=== PATIENT | male | born 1990 | race Two or more races ===

== ENCOUNTER 2022-04-15 02:04 | Emergency (ER) | payer MEDICAID, OTHER ==
[~2022-04-15] VITALS: Ht 182.9 cm; Wt 73.0 kg
[2022-04-15] MEDS ORDERED: ONDANSETRON HCL 4MG/2ML INJ IV STA (03:55)
[2022-04-15] MEDS ORDERED: MORPHINE SULFATE 4 MG/ML CPJ (NOT FOR IM USE) IV STA (03:55)
[2022-04-15] MEDS: SODIUM CHLORIDE 0.9% 1,000 ML IV ONE ×2 (04:19→06:01)
[2022-04-15 05:54] LABS: BASOPHILS % 0.2 % (0.0-2.0); EOSINOPHILS % 0.5 % (0.0-5.0); HEMATOCRIT. 43.3 % (42.0-52.0); HEMOGLOBIN. 14.9 g/dL (14.0-18.0); LYMPHOCYTES % 8.5 % (20.0-50.0); MEAN CORPUSCULAR HEMOGLOBIN 28.8 pg (28.0-32.0); MEAN CORPUSCULAR VOLUME 83.7 fL (80.0-94.0); MEAN PLATELET VOLUME 7.9 fl (7.4-10.4); MONOCYTES % 3.8 % (2.0-8.0); PLATELET 227 x1000/uL (130-400); RED BLOOD CELL COUNT 5.18 mill/uL (4.7-6.1); RED CELL DISTRIBUTION WIDTH 14.5 % (11.6-14.6)
[2022-04-15] MEDS ORDERED: ONDANSETRON HCL 4MG/2ML INJ IV SCH (06:00)
[2022-04-15] MEDS ORDERED: MORPHINE SULFATE 4 MG/ML CPJ (NOT FOR IM USE) IV SCH (06:00)
[2022-04-15] MEDS ORDERED: MORPHINE SULFATE 4 MG/ML CPJ (NOT FOR IM USE) IV ONE (10:30)
[2022-04-15 11:00] VITALS: BP 108/62
== END 2022-04-15 11:59 | disposition short-term general hospital (02) ==
LOC: EDBD 02:04 → ER 02:04
DX: S32.018A Other fracture of first lumbar vertebra, initial encounter for closed fracture (principal); V43.52XA Car driver injured in collision with other type car in traffic accident, initial encounter; X01.8XXA Other exposure to uncontrolled fire, not in building or structure, initial encounter; F10.129 Alcohol abuse with intoxication, unspecified; Y90.9 Presence of alcohol in blood, level not specified; Z74.09 Other reduced mobility; R26.2 Difficulty in walking, not elsewhere classified; Y93.89 Activity, other specified; Z78.1 Physical restraint status; Y92.488 Other paved roadways as the place of occurrence of the external cause
CPT/HCPCS: 36415; 72131; 74176; 85025; 96361; 96374; 96375; 96376; 99285; J2270; J2405; J7030